=== PATIENT | female | born 1985 | race Caucasian/White ===

== ENCOUNTER 2016-08-08 20:52 | Emergency (ER) | payer MEDICAID ==
[~2016-08-08] VITALS: Ht 160 cm; Wt 68.0 kg
[2016-08-08 20:54] VITALS: BP 141/83; PULSE 106; PULSE 20; RESP 20; TEMP 98.6; O2SAT 96
[2016-08-08] MEDS ORDERED: SODIUM CHLOR 0.9% 1000 ML INJ 1,000 ML IV ONE (21:50)
[2016-08-08] MEDS ORDERED: ACETAMINOPHEN 1000 MG/100 ML VIAL IV ONE (22:00)
--- NOTE | 2016-08-08 22:10 | PD ---
HPI Chief Complaint: Related Problem Time Seen by Provider: 22:05 Travel History International Travel<30 days: No Contact w/Intl Traveler<30days: No Traveled to known affect area: No History of Present Illness HPI 30-year-old female that presents to the ED for evaluation of lower pelvic pain on the right side and a history of previous ectopic. Per patient she believes that she is . Per patient she is recently did urine test about a week ago which was positive. Per patient her last menstrual period was about a month ago. Per patient she had a ectopic on her left side that required surgery as well as removal of the fallopian tube secondary to hemorrhage on a year ago in [place]. Per patient she is currently visiting here on vacation for the race. Per patient the pain started on the right pelvic area as well as the groin about 2 days ago but was bearable and she thought it was just related to the . Per patient since this afternoon the pain has progressively getting more severe and sharp. Per patient she hasn't taken anything for it. He states that the symptoms are similar to her previous ectopic and that she is scared about this. She states that she feels nauseous but hasn't vomited. She states that the pain is severe 10 out of 10. Per patient she has no urinary issues but does state having some vaginal discharge which is clear fluid. PFSH Past Medical History Asthma: Yes ?: LMP: 06/29/16 Past Surgical History Gynecologic Surgery: Yes (FALLOPIAN TUBE LEFT REMOVED) Other Surgery: Yes (RECONSTRUCTIVE SX ON NOSE) Social History Alcohol Use: No Tobacco Use: No Substance Use: No Allergies-Medications (Allergen,Severity, Reaction): Coded Allergies: Penicillin (Verified Allergy, Intermediate, Hives, 08/08/16) Codeine (Verified Adverse Reaction, Intermediate, Nausea/Vomiting, 08/08/16 ) Reported Meds & Prescriptions Reported Meds & Active Scripts Active No Active Prescriptions or Reported Medications Review of Systems General / Constitutional: No: Fever, Chills, Weight Gain, Weight Loss, Other Eyes: No: Diploplia, Blurred Vision, Photophobia, Drainage, Redness, Foreign Body Sensation, Pain, Tearing, Blind Spots, Visual changes, Blindness, Other HENT: No: Headaches, Vertigo, Lightheadedness, Sore Throat, Rhinitis, Rhinorrhea, Congestion, Nosebleed, Neck Stiffness, Neck Pain, Masses, Gingival Bleeding, Dental Difficulties, Ear Discharge, Earache, Other Cardiovascular: No: Chest Pain or Discomfort, Palpitations, Irregular Rhythm, Tachycardia, Diaphoresis, Syncope, Dyspnea on exertion, Varicosities, Edema, Cyanosis, Varicosities, Phlebitis, Claudication, Other Respiratory: No: Cough, Shortness of Breath, Wheezing, Sneezing, Orthopnea, Hemoptysis, Stridor, Night Sweats, Pleuritic Pain, Other Gastrointestinal: Positive: Nausea, No: Vomiting, Diarrhea, Abdominal Pain, Hematemesis, Hematochezia, Constipation, Changes in Bowel Habits, Indigestion, Dysphagia, Loss of Appetite, Other Genitourinary: Positive: Pelvic Pain, Discharge, No: Urgency, Frequency, Dysuria, Nocturia, Hematuria, Decreased Urinary Output, Oliguria, Hesitancy, Dribbling, Incontinence, Flank Pain, Dyspareunia, Dysmenorrhea, Menorrhagia, Metorrhagia, Vaginal Bleeding, Other Musculoskeletal: No: Myalgias, Arthralgias, Limited ROM, Weakness, Cramping, Edema, Pain, Atrophy, Other Skin: No Rash, No Itching, No Dryness, No Lumps, No Hives, No Change in Pigmentation, No Change in nails, No Alopecia, No Lesions, No Breast Lumps, No Breast Tenderness, No Breast Swelling, No Other Neurologic: No: Weakness, Dizziness, Syncope, Focal Abnormalities, Coordination Problem, Tremor, Ataxia, Headache, Change in Mentation, Slurred Speech, Paresthesia, Incontinence, Seizures, Sensory Disturbance, Other Psychiatric: No: Anxiety, Depression, Suicidal Ideations, Disorder of Thought, Mood Disorder, Substance Abuse, Homicidal Ideation, Other Endocrine: No: Heat Intolerance, Cold Intolerance, Polyuria, Polydipsia, Other Hematologic/Lymphatic: No: Easy Bruising, Lymph Node Enlargement, Other Physical Exam Narrative GENERAL: SKIN: Warm and dry. HEAD: Atraumatic. Normocephalic. EYES: Pupils equal and round. No scleral icterus. No injection or drainage. ENT: No nasal bleeding or discharge. Mucous membranes pink and moist. Tongue is midline. No uvula deviation. NECK: Trachea midline. No JVD. CARDIOVASCULAR: Regular rate and rhythm. No murmurs, S3, S4. RESPIRATORY: No accessory muscle use. Clear to auscultation. Breath sounds equal bilaterally. GASTROINTESTINAL: Abdomen soft, non-tender, nondistended. Hepatic and splenic margins not palpable. MUSCULOSKELETAL: Extremities without clubbing, cyanosis, or edema. No obvious deformities. Full range of motion of the upper and lower extremities bilaterally. 2+ pulses bilaterally. NEUROLOGICAL: Awake and alert. No obvious cranial nerve deficits. Motor grossly within normal limits. Five out of 5 muscle strength in the arms and legs. Normal speech. PSYCHIATRIC: Appropriate mood and affect; insight and judgment normal. Data Data Last Documented VS Vital Signs Date Time Temp Pulse Resp B/P Pulse Ox O2 Delivery O2 Flow Rate FiO2 08/08/16 20:54 98.6 106 20 141/83 96 Room Air Orders Complete Blood Count With Diff (08/08/16 21:38) Basic Metabolic Panel (Bmp) (08/08/16 21:38) Prothrombin Time / Inr (Pt) (08/08/16 21:38) Act Partial Throm Time (Ptt) (08/08/16 21:38) Urinalysis - C+S If Indicated (08/08/16 21:38) Beta Hcg (Quant/Titer) (08/08/16 21:38) Magnesium (Mg) (08/08/16 21:38) Type And Screen (08/08/16 21:38) Ed Urine Pregnancytest Poc (08/08/16 21:38) Acetaminophen Inj (Ofirmev Inj) (08/08/16 22:00) Sodium Chlor 0.9% 1000 Ml Inj (Ns 1000 M (08/08/16 21:50) Us Pelvis (Ques Pr/Ect)W Trans (08/08/16 21:52) Labs Laboratory Tests Test 08/08/16 20:50 White Blood Count 7.8 TH/MM3 Red Blood Count 4.54 MIL/MM3 Hemoglobin 14.0 GM/DL Hematocrit 40.8 % Mean Corpuscular Volume 89.9 FL Mean Corpuscular Hemoglobin 30.8 PG Mean Corpuscular Hemoglobin 34.2 % Concent Red Cell Distribution Width 13.6 % Platelet Count 196 TH/MM3 Mean Platelet Volume 9.9 FL Neutrophils (%) (Auto) 67.3 % Lymphocytes (%) (Auto) 21.6 % Monocytes (%) (Auto) 10.3 % Eosinophils (%) (Auto) 0.6 % Basophils (%) (Auto) 0.2 % Neutrophils # (Auto) 5.3 TH/MM3 Lymphocytes # (Auto) 1.7 TH/MM3 Monocytes # (Auto) 0.8 TH/MM3 Eosinophils # (Auto) 0.1 TH/MM3 Basophils # (Auto) 0.0 TH/MM3 CBC Comment DIFF FINAL Differential Comment Urine Color YELLOW Urine Turbidity HAZY Urine pH 6.0 Urine Specific [place] 1.026 Urine Protein TRACE mg/dL Urine Glucose (UA) NEG mg/dL Urine Ketones NEG mg/dL Urine Occult Blood SMALL Urine Nitrite NEG Urine Bilirubin NEG Urine Urobilinogen LESS THAN 2.0 MG/DL Urine Leukocyte Esterase TRACE Urine RBC 7 /hpf Urine WBC 3 /hpf Urine Squamous Epithelial 5 /hpf Cells Urine Amorphous Sediment RARE Urine Bacteria OCC /hpf Urine Mucus FEW /lpf Microscopic Urinalysis Comment CULT NOT INDICATED Sodium Level 142 MEQ/L Potassium Level 3.4 MEQ/L Chloride Level 108 MEQ/L Carbon Dioxide Level 25.2 MEQ/L Anion Gap 9 MEQ/L Blood Urea Nitrogen 8 MG/DL Creatinine 0.80 MG/DL Estimat Glomerular Filtration 85 ML/MIN Rate Random Glucose 89 MG/DL Calcium Level 8.7 MG/DL Magnesium Level 2.3 MG/DL MDM Medical Decision Making Medical Screen Exam Complete: Yes Emergency Medical Condition: Yes Medical Record Reviewed: Yes Interpretation(s) preg test positive UA shows UTI CBC Diagram 08/08/16 20:50 Differential Diagnosis Ectopic versus pelvic pain versus cystitis versus IUP versus UTI versus sepsis versus PID Narrative Course 30-year-old female that presents to the ED for evaluation of and possible ectopic . Patient was properly examined and was found to have signs and symptoms concerning for ectopic . Patient has a history of ectopic pregnancies that she is at higher risk for this and she states that her pain is similar to before. Urine test was positive. Labs and imaging were ordered. Ultrasound was ordered stat. Patient was given Tylenol for pain at this time as patient wants to make sure that she doesn't do any harm to the baby if is not an ectopic at this time. Case will be sent out to my attending pending lab reports and imaging and disposition. Scripts No Active Prescriptions or Reported Meds Sujit Wylie Aug 08, 2016 22:10
[2016-08-08 22:18] LABS: AUTOMATED NEUTROPHIL # 5.3 TH/MM3 (1.8-7.7); BASOPHIL % 0.2 % (0.0-2.0); EOSINOPHIL # 0.1 TH/MM3 (0-0.4); EOSINOPHIL % 0.6 % (0.0-4.0); HEMATOCRIT 40.8 % (35.0-46.0); HEMO FLAGS DIFF FINAL; LYMPH % 21.6 % (9.0-44.0); LYMPHOCYTE # 1.7 TH/MM3 (1.0-4.8); MEAN CELL VOLUME 89.9 FL (80.0-100.0); MEAN CORPUSCULAR HEMOGLOBIN 30.8 PG (27.0-34.0); MEAN CORPUSCULAR HGB CONC 34.2 % (32.0-36.0); MONO % 10.3 % (0.0-8.0); NEUT % 67.3 % (16.0-70.0); PLATELET COUNT 196 TH/MM3 (150-450); RED BLOOD COUNT 4.54 MIL/MM3 (4.00-5.30); RED CELL DISTRIBUTION WIDTH 13.6 % (11.6-17.2); WHITE BLOOD COUNT 7.8 TH/MM3 (4.0-11.0)
[2016-08-08 22:27] LABS: BACTERIA, URINE OCC /hpf; BLOOD, URINE SMALL (NEG); COMMENT (UR) CULT NOT INDICATED; CULTURE IF INDICATED CULT NOT INDICATED; GLUCOSE,URINE NEG (NEG); KETONE, URINE NEG (NEG); MUCUS URINE FEW /lpf (OCC); NITRITE,URINE NEG (NEG); SQUAMOUS EPITHELIAL CELL URINE 5 /hpf (0-5); URINE COLOR YELLOW (YELLW/STRAW)
[2016-08-08 22:36] LABS: BICARBONATE 25.2 MEQ/L (21.0-32.0); MAGNESIUM 2.3 MG/DL (1.5-2.5); POTASSIUM 3.4 MEQ/L (3.5-5.1)
[2016-08-08 22:49] LABS: APTT (PATIENT) 26.8 SEC (24.3-30.1); INTERNATIONAL NORMALIZED RATIO 0.9 RATIO; PROTHROMBIN TIME - PATIENT 10.2 SEC (9.8-11.6)
--- NOTE | 2016-08-08 23:16 | PD ---
Data Data Last Documented VS Vital Signs Date Time Temp Pulse Resp B/P Pulse Ox O2 Delivery O2 Flow Rate FiO2 08/08/16 20:54 98.6 106 20 141/83 96 Room Air Orders Complete Blood Count With Diff (08/08/16 21:38) Basic Metabolic Panel (Bmp) (08/08/16 21:38) Prothrombin Time / Inr (Pt) (08/08/16 21:38) Act Partial Throm Time (Ptt) (08/08/16 21:38) Urinalysis - C+S If Indicated (08/08/16 21:38) Beta Hcg (Quant/Titer) (08/08/16 21:38) Magnesium (Mg) (08/08/16 21:38) Type And Screen (08/08/16 21:38) Ed Urine Pregnancytest Poc (08/08/16 21:38) Acetaminophen Inj (Ofirmev Inj) (08/08/16 22:00) Sodium Chlor 0.9% 1000 Ml Inj (Ns 1000 M (08/08/16 21:50) Us Pelvis (Ques Pr/Ect)W Trans (08/08/16 21:52) Ceftriaxone Inj (Rocephin Inj) (08/08/16 23:30) Labs Laboratory Tests Test 08/08/16 20:50 White Blood Count 7.8 TH/MM3 Red Blood Count 4.54 MIL/MM3 Hemoglobin 14.0 GM/DL Hematocrit 40.8 % Mean Corpuscular Volume 89.9 FL Mean Corpuscular Hemoglobin 30.8 PG Mean Corpuscular Hemoglobin 34.2 % Concent Red Cell Distribution Width 13.6 % Platelet Count 196 TH/MM3 Mean Platelet Volume 9.9 FL Neutrophils (%) (Auto) 67.3 % Lymphocytes (%) (Auto) 21.6 % Monocytes (%) (Auto) 10.3 % Eosinophils (%) (Auto) 0.6 % Basophils (%) (Auto) 0.2 % Neutrophils # (Auto) 5.3 TH/MM3 Lymphocytes # (Auto) 1.7 TH/MM3 Monocytes # (Auto) 0.8 TH/MM3 Eosinophils # (Auto) 0.1 TH/MM3 Basophils # (Auto) 0.0 TH/MM3 CBC Comment DIFF FINAL Differential Comment Prothrombin Time 10.2 SEC Prothromb Time International 0.9 RATIO Ratio Activated Partial 26.8 SEC Thromboplast Time Urine Color YELLOW Urine Turbidity HAZY Urine pH 6.0 Urine Specific [place] 1.026 Urine Protein TRACE mg/dL Urine Glucose (UA) NEG mg/dL Urine Ketones NEG mg/dL Urine Occult Blood SMALL Urine Nitrite NEG Urine Bilirubin NEG Urine Urobilinogen LESS THAN 2.0 MG/DL Urine Leukocyte Esterase TRACE Urine RBC 7 /hpf Urine WBC 3 /hpf Urine Squamous Epithelial 5 /hpf Cells Urine Amorphous Sediment RARE Urine Bacteria OCC /hpf Urine Mucus FEW /lpf Microscopic Urinalysis Comment CULT NOT INDICATED Sodium Level 142 MEQ/L Potassium Level 3.4 MEQ/L Chloride Level 108 MEQ/L Carbon Dioxide Level 25.2 MEQ/L Anion Gap 9 MEQ/L Blood Urea Nitrogen 8 MG/DL Creatinine 0.80 MG/DL Estimat Glomerular Filtration 85 ML/MIN Rate Random Glucose 89 MG/DL Calcium Level 8.7 MG/DL Magnesium Level 2.3 MG/DL Human Chorionic Gonadotropin, [address] MIU/ML Quant Blood Type O POSITIVE Antibody Screen NEGATIVE Blood Bank Comment MDM Medical Record Reviewed: Yes Supervised Visit with GEORGE: No Narrative Course During the course of the patients emergency department visit, the patients history, examination, and differential diagnosis were reviewed with the patient. The patient had IV access obtained and blood work sent for analysis. The patient was placed on a satellite project site monitor with oximetry and blood pressure monitoring. An ultrasound was ordered by Ashish along with laboratory studies. The patient's case was checked out to me by Ashish for disposition after the conclusion of the patient's workup. An ultrasound of the pelvis was done to further evaluate for possible ectopic . The patient was provided Tylenol IV for pain, normal saline 1 L IV fluid bolus. The patient was given Rocephin 1 g IV for signs on urinalysis of a urinary tract infection per The patients laboratory studies were reviewed and remarkable for a white count of 7.8, hemoglobin 14, platelets 196 at 10.3 monocytes, BNP is remarkable for potassium of 3.4, chloride 108, GFR of 85, quantitative beta hCG 15,969. PT PTT unremarkable. Urinalysis shows trace leukocyte Estrace 7 RBCs and occasional bacteria. The patient's blood type is Rh+, therefore RhoGAM is not necessary for administration. Radiology studies were reviewed and remarkable for an ultrasound of the pelvis that shows a positive gestational sac and yolk sac with measurements characteristic of 5 weeks 6 days . However pole not visualized, differential diagnosis includes early gestation versus blighted ovum. The patient's results were discussed with her. The patient was instructed regarding the importance of following back up in 2 days for repeat quantitative beta hCG. She was also given the name of the electronics department manager for follow-up with this week. The patient is resting comfortably and feels better, is alert and in no distress. The patients results and examination findings were discussed with the patient. The repeat examination is unremarkable and benign. The history, exam, diagnostic testing, and current condition do not suggest any significant pathology to warrant further testing, continued ED treatment, admission, or surgical evaluation at this point. The vital signs have been stable. The patient does not have uncontrollable pain, intractable vomiting, or other significant symptoms. The patient's condition is stable and appropriate for discharge. The patient will pursue further outpatient evaluation with a primary care physician or other designated or consulting physician as indicated in the discharge instructions. The patient expressed understanding and was agreeable with this plan. Diagnosis Primary Impression: Abdominal pain affecting Additional Impression: Urinary tract infection Qualified Code: N39.0 - Urinary tract infection without hematuria, site unspecified Referrals: Linda Gutierrez MD 2 days Patient Instructions: Abdominal Pain in (ED), General Instructions Additional Instruction: The patient was instructed regarding bed rest and pelvic rest. She was instructed to follow back up in the emergency department in 2 days for a repeat quantitative beta hCG and reexamination. However, in the meantime, the patient' s symptoms are worsening she was instructed to follow back up in the emergency department immediately. The patient is instructed to take Tylenol as needed for discomfort. Med/Other Pt SpecificInfo: No Meds Exist/No RX given Scripts No Active Prescriptions or Reported Meds Disposition: 01 DISCHARGE HOME Condition: Christina Soto MD Aug 08, 2016 23:16
[2016-08-08] MEDS ORDERED: cefTRIAXone INJ 1,000 MG in SODIUM CHLORIDE 0.9% INJ 100 ML IV ONE (23:30)
[2016-08-08 23:48] VITALS: RESP 15
--- NOTE | 2016-08-09 00:03 | RADRPT ---
EXAM DATE/TIME: 08/08/2016 22:33 [facility] COMPARISON: No previous studies available for comparison. INDICATIONS : Pelvic pain. LAB(S): Beta-hC MEDICAL HISTORY : . Asthma. Fallopian tube ectopic. SURGICAL HISTORY : section. Left salpingectomy. Reconstructive nose surgery. ENCOUNTER: Initial ACUITY: 3 days PAIN SCORE: 9/10 LOCATION: Bilateral pelvis MEASUREMENTS: UTERUS: 10.7 x 7.5 x 5.6 cm ENDOMETRIAL STRIPE: 4 mm RIGHT OVARY: 2.9 x 1.9 x 1.4 cm LEFT OVARY: 5.4 x 3.9 x 3.6 cm FINDINGS: The gestational sac measurements are characteristic of a 5 week 6 day intrauterine . Yolk sa c is visualized but no pole. This may be too early to visualize pole. Uterus unremarkable except for tiny nabothian cyst. Right ovary unremarkable. Multiple left ovarian c ysts measuring up to 3.6 cm. No free fluid. CONCLUSION: 1. Positive gestational sac and yolk sac with measurements characteristic of 5 week 6 day . However pole not visualized. Differential diagnosis is early gestation versus blighted ovum. Freddie Zuniga MD on August 08, 2016 at 23:46 Board Certified Radiologist. This report was verified electronically.
[2016-08-09] MEDS ORDERED: CEPH-460 PO (00:58)
[2016-08-09 01:45] VITALS: BP 108/72
== END 2016-08-09 01:46 | disposition home or self-care (01) ==
LOC: NEPE 20:52
DX: O23.30 Infections of other parts of urinary tract in pregnancy, unspecified trimester (principal); O26.899 Other specified pregnancy related conditions, unspecified trimester; R10.9 Unspecified abdominal pain
CPT/HCPCS: 76700; 76817; 80048; 81001; 83735; 84702; 84703; 85025; 85610; 85730; 86850; 86900; 86901; 96361; 96374; 96375; 99285; J0131; J0696; J7030